=== PATIENT | female | born 1995 | race Caucasian/White ===

== ENCOUNTER 2018-12-14 11:54 | Emergency (ER) | payer BC, OTHER ==
--- NOTE | 2018-12-14 12:23 | EDPHY ---
H & P Stated Complaint: voluntary si Source: Patient, RN/MD Exam Limitations: No limitations - Personal History LMP (Females 10-55): 1-7 Days Ago Current Tetanus Diphtheria and Acellular Pertussis (TDAP): Yes - Medical/Surgical History Hx Asthma: No Hx Chronic Respiratory Disease: No Hx Diabetes: No Hx Cardiac Disease: No Hx Renal Disease: No Hx Cirrhosis: No Hx Alcoholism: No Hx HIV/AIDS: No Hx Splenectomy or Spleen Trauma: No Other PMH: depression - Social History Smoking Status: Never smoked Time Seen by Provider: 12/14/18 12:18 HPI/ROS: The patient was evaluated and managed by the physician web press operator assistant. I have reviewed this chart and I agree with the findings and plan of care as documented , as indicated by my signature. I am the secondary supervising physician. ( Soraida Gilman) HPI: This is a 23-year-old female who presents with Chief Complaint: Suicidal thoughts, very self critical, depression Location: psych Quality: Worsening depression, suicidal thoughts Duration: Months Signs and Symptoms: no auditory hallucinations, no visual hallucinations, + suicidal ideation with NO plan, no homicidal ideation, no paranoia Timing: Worsening Severity: Severe Context: Patient is a student at [employer], history of depression and anxiety, has been on Prozac for several years but Has not been taking Prozac x2 weeks presents with worsening depression that is not severe since August 2018 accompanied by suicidal thoughts, being very self critical, inability to perform activities of daily living. Patient does not feel safe returning home. She does not have a plan on how she is going to kill herself but she "wants to ." Modifying Factors: None Comment: ROS: A comprehensive 10 system review of systems is otherwise negative aside from elements mentioned in the history of present illness. MEDICAL/SURGICAL/SOCIAL HISTORY: Medical history: Depression, anxiety. Surgical history: Denies Social history: Originally from [place]. Admits to marijuana use. Family history noncontributory. CONSTITUTIONAL: Tearful, polite and cooperative, tidy, young adult white female , awake and alert, no obvious distress HEENT: Atraumatic and normocephalic, PERRL, EOMI. Nares patent; no rhinorrhea; no nasal mucosal edema. Tympanic membranes clear. Oropharynx clear, no exudate and moist pink mucosa. Airway patent. No lymphadenopathy. No meningismus. Cardiovascular: Normal S1/S2, mild tachycardia, regular rhythm, without murmur rub or gallop. PULMONARY/CHEST: Symmetrical and nontender. Clear to auscultation bilaterally. Good air movement. No accessory muscle usage. ABDOMEN: Soft, nondistended, nontender, no rebound, no guarding, no peritoneal signs, no masses or organomegaly. No CVAT. EXTREMITIES: 2/2 pulses, strength 5/5, no deformities, no clubbing, no cyanosis or edema. NEUROLOGICAL: no focal neuro deficits. GCS 15. SKIN: Warm and dry, no erythema. no rash. Good capillary refill. PSYCH: Good eye contact, no flight of ideas, organized thought process, fair insight and judgment, no auditory hallucinations, no visual hallucinations, + suicidal ideation with NO plan, no homicidal ideation, no paranoia (Reba Lama) Constitutional: Initial Vital Signs Temperature (C) 37.1 C 12/14/18 12:10 Heart Rate 102 H 12/14/18 12:10 Respiratory Rate 18 12/14/18 12:10 Blood Pressure 134/96 H 12/14/18 12:10 O2 Sat (%) 98 12/14/18 12:10 O2 Delivery Mode Room Air Allergies/Adverse Reactions: No Known Allergies Allergy (Unverified 12/14/18 12:09) Home Medications: Medication Instructions Recorded Bcp 12/14/18 Prozac 10 MG (*) 12/14/18 Medical Decision Making ED Course/Re-evaluation: 1240: Placed on M1 hold for severe major depression and suicidal ideation. Patient calm and cooperative in no chemical intervention is needed. Labs and UDS ordered. 1345: Labs reviewed and grossly unremarkable. Urine drug screen positive for marijuana. 1725: Spoke with mental health provider who reports Dr. Hsu wants to wait until father arrives from [facility] for further evaluation. 1730: End of shift. Signed over to Dr. Wiseman pending re-evaluation this evening when father arrives. This patient was seen under the supervision of my secondary supervising physician. I evaluated care for this patient with attending. (Reba Lama) Differential Diagnosis: Differential diagnosis includes but is not limited to major depression, anxiety disorder, schizophrenia, bipolar disorder, intoxicant use, suicidal ideation, psychosis, rommel. (Reba Lama) Other Provider: I assumed care of this patient from Reba Lama at 5:00 p.m.. Patient has been seen and evaluated by mental health. They feel comfortable discharging the patient to the care of her father. They have arranged appointment with Shiloh Lucio, therapist, for tomorrow at 2:00 p.m.. 12 midnight. We are still awaiting the arrival of the patient's father. She is sleeping and resting comfortably. She feels comfortable with the plan. She is able to verbalize to me the conditions of discharge which are that she will be discharged to her father and she will follow up tomorrow as mentioned above. (Ema Wiseman) - Data Points Laboratory Results: Laboratory Results 12/14/18 12:50 12/14/18 12:50 12/14/18 12/14/18 12/14/18 12:50 12:50 12:50 WBC 7.46 10^3/uL 10^3/uL (3.80-9.50) RBC 4.84 10^6/uL 10^6/uL (4.18-5.33) Hgb 14.6 g/dL g/dL (12.6-16.3) Hct 43.2 % % (38.0-47.0) MCV 89.3 fL fL (81.5-99.8) MCH 30.2 pg pg (27.9-34.1) MCHC 33.8 g/dL g/dL (32.4-36.7) RDW 12.6 % % (11.5-15.2) Plt Count 249 10^3/uL 10^3/uL (150-400) MPV 10.4 fL fL (8.7-11.7) Neut % (Auto) 69.8 % % (39.3-74.2) Lymph % (Auto) 24.7 % % (15.0-45.0) [place] % (Auto) 5.0 % % (4.5-13.0) Eos % (Auto) 0.1 % L % (0.6-7.6) Baso % (Auto) 0.1 % L % (0.3-1.7) Nucleat RBC Rel Count 0.0 % % (0.0-0.2) Absolute Neuts (auto) 5.21 10^3/uL 10^3/uL (1.70-6.50) Absolute Lymphs (auto) 1.84 10^3/uL 10^3/uL (1.00-3.00) Absolute Monos (auto) 0.37 10^3/uL 10^3/uL (0.30-0.80) Absolute Eos (auto) 0.01 10^3/uL L 10^3/uL (0.03-0.40) Absolute Basos (auto) 0.01 10^3/uL L 10^3/uL (0.02-0.10) Absolute Nucleated RBC 0.00 10^3/uL 10^3/uL (0-0.01) Immature Gran % 0.3 % % (0.0-1.1) Immature Gran # 0.02 10^3/uL 10^3/uL (0.00-0.10) Sodium 141 mEq/L mEq/L (135-145) Potassium 4.3 mEq/L mEq/L (3.5-5.2) Chloride 104 mEq/L mEq/L (97-110) Carbon Dioxide 24 mEq/l mEq/l (22-31) Anion Gap 13 mEq/L mEq/L (6-14) BUN 10 mg/dL mg/dL (7-23) Creatinine 0.7 mg/dL mg/dL (0.6-1.0) Estimated GFR > 60 Glucose 90 mg/dL mg/dL (70-100) Calcium 10.1 mg/dL mg/dL (8.5-10.4) Beta HCG, Qual NEGATIVE Urine Opiates Screen Urine Barbiturates Ur Phencyclidine Scrn Ur Amphetamine Screen U Benzodiazepines Scrn Urine Cocaine Screen U Marijuana (THC) Screen Ethyl Alcohol < 10 mg/dL mg/dL (0-10) 12/14/18 12:30 WBC RBC Hgb Hct MCV MCH MCHC RDW Plt Count MPV Neut % (Auto) Lymph % (Auto) [place] % (Auto) Eos % (Auto) Baso % (Auto) Nucleat RBC Rel Count Absolute Neuts (auto) Absolute Lymphs (auto) Absolute Monos (auto) Absolute Eos (auto) Absolute Basos (auto) Absolute Nucleated RBC Immature Gran % Immature Gran # Sodium Potassium Chloride Carbon Dioxide Anion Gap BUN Creatinine Estimated GFR Glucose Calcium Beta HCG, Qual Urine Opiates Screen NEGATIVE (NEGATIVE) Urine Barbiturates NEGATIVE (NEGATIVE) Ur Phencyclidine Scrn NEGATIVE (NEGATIVE) Ur Amphetamine Screen NEGATIVE (NEGATIVE) U Benzodiazepines Scrn NEGATIVE (NEGATIVE) Urine Cocaine Screen NEGATIVE (NEGATIVE) U Marijuana (THC) Screen NON-NEGATIVE H (NEGATIVE) Ethyl Alcohol Medications Given: Discontinued Medications Ibuprofen (Motrin) 600 mg PO EDNOW ONE Stop: 12/14/18 16:31 Last Admin: 12/14/18 16:36 Dose: 600 mg Departure - Departure Disposition: Home, Routine, Self-Care Clinical Impression: Severe major depression without psychotic features, Suicidal thoughts Condition: Good Instructions: Depression (ED), Suicide Prevention (ED) Additional Instructions: You been discharged to the care of your father. Follow-up tomorrow as previously scheduled with the therapist. Your appointment is at 2:00 p.m.. Referrals: NONE *PRIMARY CARE P,. [Primary Care Provider] - As per Instructions [facility] [Clinic] - As per Instructions
[2018-12-14 13:14] LABS: PLATELET COUNT 249 10^3/uL (150-400)
[2018-12-14] MEDS ORDERED: IBUPROFEN 600 MG TAB PO ONE (16:30)
[2018-12-15 00:40] VITALS: BP 145/70
--- NOTE | 2018-12-16 16:28 | ASMTTLCEVL ---
TLC Evaluation - Basic Information Evaluation Start Date and 12/14/2018 03:35 PM Time Hospital Status Answers: M1 Hold 72-hr M1 Hold Start Date 12/14/2018 12:30 PM and Time Patient statement Notes: "It's a lot of things". Narrative Notes: Pt is a 23 y/o female, senior at . Pt's mother, who lives in [place], was concerned over pt's level of depression and SI and asked her to come to the ED; a friend of pt drove her here. The ED physician placed her on a hold for being a danger to herself. PerM1, " Patient has severe major depression with increasing suicidal thoughts. Does not feel safe to be alone". Pt has a long hx of experiencing both symptoms of anxiety and depression. There have been 3 periods in her life when these symptoms became significant and interfered with her ability to function and feel happiness and hope, including this current one. Pt's present episode of symptoms began to escalate in August 2018 following a "falling out" between her and a very close friend. This was followed in October by a text sent from the mother of a close friend who had "overdosed accidentally" . The text accuses pt of "causinbg" his and threatens police and court action, refers to "evidence". Pt was the person who found her friend after his overdose; she states she had nothing to do with this overdose, but her grieving for him has been made complicated by these threats. She had not shared this with her own parents. In early November, her bf of 4 months "broke-up" with her; she now sees him with another girl and is struggling to "get over" this. In addition she is graduating from college in February, hoping to remain in [place] and is experiencing anxiety over finding a job through which she can support herself. Complicating all of these stressors is pt's self described significant, internal, self-critial dialogue which she has always experienced. Pt endorses the following signs of depression and anxiety: depressed and anxious mood, a degree of hopelessness, guilt and a sense of being punished for poor behavior, self-criticalness and worthlessness, agitation and fatigue, difficulty concenrating and making decisions, some irritability, a loss of pleasure in activities she used to enjoy, oversleeping and an ability to only eat 1 meal a day. She has experienced SI over the last month; it has been increasing in frequency and intensity. She has thought of the possibility of using a rope, an overdose or a car accident and has ruled out "cutting" or a gun. She presently denies any intent to commit suicide and has made no preperations. She did tell her parents this morning, but has not yet told her therapist, whom she last saw 2 weeks ago. Pt describes 2 earlier episodes of depression, both during transitional periods of her life. The first of these was towards the end of high school and the second was at the beginning of college at . During this second episode she returned home prior to , saw a psychiatrist and was placed on Prozac. She reports that she saw improvement in her symptoms during her sat year on Prozac, but was inconsistent with it after this. She reports not taking it now for 2 weeks. Her reasons for not taking it consistently appear to be related to both forgetfuness and the stigma associated with medications. Pt experienced no SI during either of these periods or at any other time in her life. Pt does report an increase in substance use over the last few weeks. Last night she "blacked out"; reportedly she had a confrontation with her ex bf's, new gf's friends, and feels "humiliated" by it. Diagnosis History Notes: Depression Social anxiety Prior suicide attempts Notes: Pt denies any SA Prior hospitalizations Notes: Pt denies any previous psychiatric hosptalization. Treatment Responses Notes: Pt reports that she did well for the first year on Prozac with an alleviation of symptoms. History of violence Notes: Pt denies any hx of violence. Therapist: Shiloh Medrano Psychiatrist: In [place] Medications (name, dosage, route, freq uency) Notes: Prozac - 30mg Clonopine, PRN Allergies/Reaction Notes: No known allergies Sleep Notes: Falls asleep, sometimes following use of Cannabis. Goes to sleepearly and stays in bed after waking. Appetite Notes: Appetite is decreased; she reports eating 1 meal a day. Medical/Surgical history Notes: Born with pneumonia, spent 1 month in hospital. No other known medical/surgical hx. Substance use history (frequency, intensity, his tory, duration) Notes: ETOH - Normal use is 2x a week, 4 drinks at a time Increased over past few weeks with a "blackout" last night. Marijuana - Sometimes, but not daily, before bed Cocaine- During last month and a half, 1x week Clonopine - 2-3x a week mostly for anxiety and not for recreational use. Family composition Notes: Pt's family lives in [place]. Her mother is a therapist. She has 2 older sibings. Is not close with her brother and is "close enough" with her sister. Need for family Answers: Yes participation in patient's care Family psychiatric/substance abuse history Notes: Possibly anxiety forolder brother and a distant maternal female relative. Developmental history Notes: Pt born with pneumoina and required to stay in the hospital for her first month. [facility] describes her as "anxious" from that early experience. Pt reports separation anxiety with her mother. She denies any trauma/abuse. Abuse concerns Answers: None Marital status/children Notes: Single, no children. Living situation Notes: Pt lives with 4 friends; she has her own room, but a roomate needs to access it to come and go from her bedroom. Sexual history/orientation Notes: Heterosexual. Peer support/family strengths Notes: Pt describes feeling close to and supported by both parents. She reports feeling close to all of her roomates and several people she does not live with. She has been seeing her therapist since 2015. Education level/history Notes: Pt is a senior, graduating with a degree in psychology. 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 She has been offered a job with a family, but is in need of a car to pursue this. Her parents have plans to hep her acquire one. Notes: Pt denies any miitary service. Legal Notes: Pt has not legal obligations. Roman Catholic/Spiritual Notes: unknown. Leisure Notes: Drawing, being outside,spending time with friends. Collateral Notes: TLC clinician spoke with [facility] and [facility]. They confirm all of the information given by their daughter. Pt's father is flying into [place] this evening. Patient's strengths Answers: Artistic/Creative/Musical (Please select at least TWO strengths): Good Friend to Others Intelligent Supportive Family [facility] Evaluation - Mental Status Exam Appearance: Answers: Appropriate Clean Disheveled Eye Contact: Answers: Good/Direct Mood: Answers: Depressed Affect: Answers: Appropriate Sad Subdued Tearful Behavior: Answers: Appropriate Cooperative Speech: Answers: Relevant Logical Clear Coherent Thought Process: Answers: Organized Oriented Alert Goal Oriented Intact Insight: Answers: Fair Judgement: Answers: Poor Depression Answers: Crying Spells Signs/Symptoms: Difficulty Concentrating Diminished Interest Diminished Pleasure Hopelessness Psychomotor Agitation Sad Mood Withdrawn Worthlessness Anxiety Signs/Symptoms Answers: Generalized Anxiety Hallucinations: Answers: None Current Stage of Change Answers: Precontemplation Pt reported to have Answers: Yes suicidal/self-injuring ideation/behavior? Pt reported to be making Answers: No suicidal/self-injuring threats? Pt reported to have Answers: No aggression/assault ideation/behavior? Pt reported to be making Answers: No aggression/assault threats? Pt exhibits inability to Answers: No care for self/grave disability? Ideation/behavior is Answers: No chronic? Patient has a specific Answers: No plan? Pt has access to means to Answers: No execute the plan? Ideation involves Answers: Yes serious/lethal intent? Ideation has Answers: No delusional/hallucinatory content? History of Answers: No suicidal/self-injuring ideation, behavior, or threats? History of Answers: No aggressive/assaultive ideation, behavior, or threats? History of serious Answers: No physical harm to self/others while in treatment setting? [facility] Evaluation - Suicide/Homicide Risk Suicide Risk Factors: Answers: Agitation Alcohol/Heavy Drug Use Anxiety/Panic, Severe Impulsivity Major Depression Single Homicide/violence risk Answers: Heavy Alcohol Use factors: Current Suicidal Answers: Yes Ideation? Current Suicide Ideation Ongoing for last month Frequency: Current Suicidal Ideation Answers: Yes in the Past 48 Hours? Current Suicidal Ideation Answers: Yes in the Past Month? Current Suicidal Answers: Yes Ideation, Worst Ever? Suicide Internal Answers: Absence of Psychosis Protective Factors: Suicide External Answers: Positive Therapeutic Protective Factors: Relationships Other Notes: Supportive parents and friends Ranking of patient's Answers: Low suicidal risk: Ranking of patient's Answers: Low homicidal risk: TLC Evaluation - Wrap-up BDI Total Score: 48 BDI Question #2 Score: 2 BDI Question #9 Score: 1 BSS Total Score: 6 AXIS I Diagnosis (include DSM-V and ICD-10 codes), must also be entered in [employer], which is the source of truth. Notes: Major Depressive Disorder, recurrent, moderate 296.32 (F33.1) Generalized Anxiety Disorder 300.02 (F41.1) Alcohol Use Disorder, moderate 303.90 (F10.20) In consultation with [facility] ED physician, Dr Wiseman and on-call psychiatrist,Dr Hsu, both concurred that Pt does not appear to meet 27-65 criteria requiring psychiatric hospitalization as Pt does not appear to be an imminent risk of harm to self due to a mental illness condition. Mental health hold was evacuated by Dr Wiseman, 12/15/2018 at 00:25 Evaluation End Date and 12/14/2018 05:00 PM Time (HH:EMIGDIO): Date Signed: 12/16/2018 04:27 PM Electronically Signed By:Diana Bennett
--- NOTE | 2018-12-16 16:30 | ASMTTCLDSP ---
TLC Discharge Disposition Disposition: Answers: Discharge If Answers: Yes DISCHARGED: Patient/family given suicide hotline info & SAMHSA brochure? Disposition Notes: Notes: Safety and Support Plan: Pt will be discharged to father's care. Pt will contact her therapist and request an appt. Clinician will contact the therapist and communicate the information that pt was on a M1 hold for SI. Father of patient will maintain supervision of her with the exception of her time in classes until her next therapy appointment. Pt will discuss a return to psychiatric medications with her therapist. Pt will abstain from all substances. Discharge Concerns/Recommendations: Notes: In consultation with [facility] ED physician, Dr Wiseman and on-call psychiatrist,Dr Hsu , both concurred that Pt does not appear to meet 27-65 criteria requiring psychiatric hospitalization as Pt does not appear to be an imminent risk of harm to self due to a mental illness condition. Mental health hold was evacuated by Dr Wiseman, 12/15/2018 at 00:25. Dr Hsu approved of hold being lifted once pt's father had gotten to the ED. Psychiatrist vacating M1 Dr Wiseman with Dr Hsu's earlier approval. Hold: Date and time M1 hold 12/15/2018 12:25 AM vacated (time format is hh:mm): Type of Hold: Answers: M1/72-hour Hold Hold initiated by: Answers: ED Physician Date Signed: 12/16/2018 04:30 PM Electronically Signed By:Diana Bennett
== END 2018-12-15 00:39 | disposition home or self-care (01) ==
PROC: GZ11ZZZ Psychological Tests, Personality and Behavioral (ICD-10-PCS; principal; 2018-12-14)
DX: R45.851 Suicidal ideations (principal); F32.9 Major depressive disorder, single episode, unspecified
CPT/HCPCS: 80305; G0480